=== PATIENT | male | born 1970 | race Two or more races ===

== ENCOUNTER 2024-03-24 08:10 | Outpatient (AMB) | payer OTHER, SELFPAY ==
--- NOTE | 2024-03-24 08:20 | MHC.OFFVIS ---
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 Patient reports while at work he was fixing a bed, while under the bed the railing fell off hitting his arm. He had instant pain, and had applied ice. He presented to [facility] in [place] the following day due to his pain. He was referred to orthopedics. Currently he has constant pain around his elbow. Intermittent numbness and tingling in his hand. He has difficulty with lifting heavy objects, stating it causes pain in his elbow. He continues to work with light duty restrictions. 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 He reports he was at work fixing a bed when the railing fell off while he was under the bed and injured his arm. He experienced instant pain and had applied ice after which he was seen at [facility] at [place] the following day where he was referred to our office. He currently states he has no improvement and experiences a constant pain around his elbow as well as intermittent numbness and tingling that radiates down to his hand. His pain is aggravated with lifting heavy objects. He continues to work with light duty restrictions. 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 Review of Systems Const All systems reviewed & are unremarkable except as noted in HPI and below Physical Exam Vital Signs: BMI result Body Mass Index 29.6 Const General: cooperative, healthy appearing, comfortable, no acute distress, well developed and alert Orientation/consciousness: patient oriented x3 HEENT Head: Yes normal to inspection, Yes normocephalic and Yes atraumatic Eyes General: appearance normal, both eyes and all related structures Resp Effort & Inspection: normal respiratory effort and able to speak in complete sentences Cardio Rate: regular rate Peripheral pulses: Peripheral pulses 2+ throughout GI Palpation (GI): Soft to palpation Skin Lesions: no lesions Rashes: no rashes Neuro General: patient oriented x3 Extrem Other: Right elbow: Skin intact. No erythema or swelling. ROM full without pain. Tenderness over the lateral epicondyle and pain with resisted wrist extension. NVI. Assessment & Plan Assessment & Plan (1) Right elbow tendonitis: Code(s): M77.8 - Other enthesopathies, not elsewhere classified Category: Medical (2) Contusion of right elbow: Code(s): S50.01XA - Contusion of right elbow, initial encounter Category: Medical Plan A referral to occupational therapy has been ordered to work on stretching and strengthening exercises. An MRI of the right elbow was ordered to further evaluate the extent of his injury. He will continue with his current work restrictions of avoiding any type of lifting, pushing, pulling, or carrying greater than 10 pounds. He was given an arm band brace today and he will see me back once the MRI is complete. Orders: Orders OT Evaluation and Treatment Today M77.8 - Other enthesopathies, not elsewhere classified, S50.01XA - Contusion of right elbow, initial encounter MR elbow RT wo con Today M77.8 - Other enthesopathies, not elsewhere classified, S50.01XA - Contusion of right elbow, initial encounter Patient Instructions: Scribed for Manohar Hall PA-C, by Dexter Bland medical scientist, on 03/24/2024 at 8:30 AM EST.? I, Manohar Hall PA-C, have personally reviewed and agree with the information entered by the scribe. Coding Level of Care Code New Pt Level 3 (68370) Complex EM visit Add On G2211 Diagnoses Right elbow tendonitis M77.8 Contusion of right elbow S50.01XA
[2024-03-24 08:27] VITALS: BMI 29.6
== END 2024-03-24 09:24 | disposition home or self-care (01) ==
PROVIDERS: Visit Provider Physician Assistant
DX: M77.8 Other enthesopathies, not elsewhere classified (principal); S50.01XA Contusion of right elbow, initial encounter
CPT/HCPCS: 99203; G2211

== ENCOUNTER → 2024-03-24 08:10 | Outpatient (BNVA) | payer OTHER, SELFPAY | PROVIDERS: Visit Provider Physician Assistant | DX: S50.01XA Contusion of right elbow, initial encounter (principal); M77.8 Other enthesopathies, not elsewhere classified | CPT/HCPCS: 99202 ==

== ENCOUNTER 2024-04-11 18:37 | Outpatient (REF) | payer OTHER, SELFPAY ==
--- NOTE | ~2024-04-11 | MR_ITS ---
EXAMINATION: MR ELBOW WITHOUT CONTRAST, RIGHT CLINICAL INFORMATION: Right elbow contusion. Persistent pain following injury on 02/16/2024. COMPARISON: None available. TECHNIQUE: MRI of the elbow was performed using routine sequences on a high-field scanner. FINDINGS: Ulnar collateral ligament: Intact. Common flexor tendon: Minimal common flexor tendinosis. No tear. Radial collateral ligament: Intact. Common extensor tendon: Mild common extensor tendinosis with proximal intrasubstance partial tearing measuring up to 0.5 cm in craniocaudal dimension. No full-thickness transverse and anterior tendon retraction. Biceps/triceps tendon: Minimal distal biceps tendinosis. Intact brachialis and triceps tendons. Articular cartilage/bone: No acute fracture or dislocation. No marrow edema or evidence of acute osseous injury. Intact articular cartilage. No osteochondral lesion. Ulnar nerve: Intact. Joint fluid/soft tissues: Mild dorsal subcutaneous edema without organized fluid collection or hematoma formation. Findings could indicate soft tissue contusion. No significant joint effusion. No soft tissue mass. MR/MR elbow RT wo con IMPRESSION: 1. Mild common extensor tendinosis with proximal intrasubstance partial tearing measuring 0.5 cm in craniocaudal dimension. No full-thickness transverse tendon tear or tendon retraction. 2. Minimal common flexor tendinosis. 3. Minimal distal biceps tendinosis. 4. Mild dorsal subcutaneous edema without organized fluid collection or hematoma formation. Findings could indicate soft tissue contusion. 5. No acute osseous injury. No osteochondral lesion. Electronically signed by: Nigel Izaguirre MD 04/24/2024 01:17 PM [facility]
== END 2024-04-11 18:38 | disposition home or self-care (01) ==
LOC: HO.MRI 18:37
PROVIDERS: Visit Provider Physician Assistant
DX: S50.01XA Contusion of right elbow, initial encounter (principal); M77.8 Other enthesopathies, not elsewhere classified
CPT/HCPCS: 73221

== ENCOUNTER 2024-05-01 11:21 | Outpatient (AMB) | payer OTHER, SELFPAY ==
--- NOTE | 2024-05-01 11:22 | MHC.OFFVIS ---
Intake Visit Reasons: Tel-Right elbow tendonitis MRI review Intake Note: Luciano is a 53 year old male, scheduled for a telephone visit for an MRI review of right elbow s/p WC injury, DOI 02/15/24. Patient reports his pain is a 6/10 today. He notices that PT is helping him a little bit. Allergies No Known Allergies Allergy (Verified 05/01/24 11:23) HPI HPI Tel-Right elbow tendonitis MRI review: Details: 53 yo male presents for telehealth MRI f/u right elbow . He states he has done 6 OT sessions and has some improvement but continues to have some pain and weakness. 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 Mild common extensor tendinosis with proximal intrasubstance partial tearing measuring 0.5 cm in craniocaudal dimension. No full-thickness transverse tendon tear or tendon retraction. 2. Minimal common flexor tendinosis. 3. Minimal distal biceps tendinosis. 4. Mild dorsal subcutaneous edema without organized fluid collection or hematoma formation. Findings could indicate soft tissue contusion. 5. No acute osseous injury. No osteochondral lesion. Assessment & Plan Assessment & Plan (1) Right elbow tendonitis: Code(s): M77.8 - Other enthesopathies, not elsewhere classified Category: Medical Plan: We discussed MRI of the right elbow at length. I recommend continued OT to work on rom, strength and stretching. He should continue to limit activities with lifting or repetitive motion. He will continue working with current limitations. He will see me back in 6 weeks sooner if needed. Coding Level of Care Code Tele Est Pt Level 3 (62940) Diagnoses Right elbow tendonitis M77.8
== END 2024-05-01 11:31 | disposition home or self-care (01) ==
LOC: HO.HOS 11:21
PROVIDERS: Visit Provider Physician Assistant
DX: M77.8 Other enthesopathies, not elsewhere classified (principal)
CPT/HCPCS: 99213

== ENCOUNTER 2024-05-08 08:50 | Outpatient (RCR) | payer OTHER, SELFPAY ==
--- NOTE | 2024-04-15 08:27 | MHC.OT.OEV ---
[address] [phone] F: [phone] Occupational Therapy Evaluation Patient Name: Luciano Green Diagnosis: (R)elbow Date of Onset: 02/15/24 Date of Surgery: Attending Provider: Manohar Hall Prescribed Treatment: Follow Up Appointment: History of Current Condition: Patient is a 53 year old male who was referred to skilled OT with report of pain at the (R)elbow from a work injury on 02/15/2024. 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 He went to Urgent Care and referred to orthopedics. He denies numbness/ tingling and reports pain as 8/10 during movement, 7/10 with elbow extension and 0/10 elbow flexion. He reported PLOF as (I)ADLs/IADLs. 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 Currently he is on light duty, he states pushing, pulling and lifting heavy items is difficult. He also states the pain makes it difficult for him to sleep. 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 and children provide support Current Level of Function and Occupation Self Care, Employment, Leisure: is on light duty min (A)IADLs Sleep: Difficulty sleeping due to pain Driving: Functional Vision: Balance: Pain Assessment Pain Score: 8 Pain Scale Used: Numeric (0 - 10) Pain Location and Description: 8/10 during movement- sharp pain 7/10 elbow extension, 0/10 elbow flexion Aggravating Factors: pulling, lifting, items, pushing beds. Alleviating Factors: taking ibuprofen Skin and Soft Tissue Assessment Skin and Soft Tissue: Comments: Skin intact- no bruising, mild edema present Nerve assessment Ulnar Nerve: Median Nerve: Radial Nerve: Comments: Sensory Assessment Temperature: Light Touch: Proprioception: Vibration: Comments: Edema Assessment Upper Extremity: Right Impaired Lower Extremity: Comments: edema around the elbow Dexterity Assessment Dexterity: Right Impaired Comments: Functional Dexterity Test 39.09 seconds= impaired Special Tests Comments: Cozen's Test (+) Mill's Test (+) AROM(PROM) Strength Cervical Cervical Flexion: Cervical Extension: Cervical Lateral Flexion: Cervical Rotation: Comments: Shoulder Flexion: Extension: Abduction: Internal Rotation: External Rotation: Comments: WFL Flexion: Extension: Abduction: Internal Rotation: External Rotation: Comments: WFL Elbow Flexion: Extension: Pronation: Supination: Comments: WFL Flexion: Extension: Pronation: Supination: Comments: (R)3+/5 extensors Wrist Flexion: (R) 87* Extension: (R) 70* Ulnar Deviation: (R) 13* Radial Deviation: (R) 26* Comments: Flexion: Extension: Ulnar Deviation: Radial Deviation: Comments: WFL Thumb Thumb CMC Flexion: Thumb MCP Flexion: Thumb IP Flexion: Radial Abduction: Palmar Abduction: [place] ([place] 0-10): Comments: WFL Digits Index MCP: PIP: DIP: Long MCP: PIP: DIP: Ring MCP: PIP: DIP: Small MCP: PIP: DIP: Comments: WFL Gross Grasp: (R)50lbs., (L)90lbs. Lateral Pinch: 16* Two-Point Pinch: 9* Three-Jaw Monty: 6* Comments: Patient Education Primary Language: Caustic Room Attendant Required: No Current Knowledge: Teaching Method: Education Needs Identified on Evaluation: How did patient/family demonstrate learning? Barriers to Learning: Readiness for Learning: Who was educated? 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 Provocative Testing revealed positive Cozen's and Mill's testing indicating lateral epicondylitis. Quick DASH score= 63.6 indicating patient's perceived impairment of the (R)UE during self care tasks. Due to the documented impairments it is recommended that patient receive skilled OT intervention in order for patient to achieve his PLOF of (I) during self care tasks and to return to work with no limitations. 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 LTG Duration: 4 weeks Care Home Goals: Patient will report 0/10 pain during self care tasks Patient will be (I) with HEP Patient will had full AROM of (R) wrist Patient will have decrease Quick DASH score by at least 20% indicating over UE improvement during self care tasks Frequency and Duration: The patient will be seen 2x a week for 4 weeks Treatment Plan: Therapeutic Exercise Therapeutic Activity Home Exercise Program Splinting Patient Education Edema Control ADL Training Ultrasound Iontophoresis Paraffin Fluidotherapy MHP Cold Packs Joint Mobilization Soft Tissue Mobilization Kinesiotaping Other (see comments) Skilled OT eval and treat Electronically Signed By: MARK Rodriguez/Sedrick, CLT Reviewed/agree with student documentation: Therapist: Please sign and return to therapist, Thank you for your referral.
--- NOTE | 2024-05-15 09:38 | MHC.OT.DC ---
[address] [phone] F: [phone] Occupational Therapy Discharge Note Patient Name: Luciano Green Provider: Manohar Hall Diagnosis: (R)elbow Date of Surgery: Date of Evaluation: 04/14/24 Date of Discharge: Treatments to Date: 4 Cancellations to Date: No Shows to Date: Discharge Status: Visit Non-compliance Discharge Summary: Pt is being d/charged due to visit non-compliance Electronically Signed By: Karena Titus OTR/L Reviewed/agree with student documentation: Therapist: Yumiko Haider OTR/Sedrick, CLT Please Sign and return to therapist, thank you for your referral.
--- NOTE | 2024-05-15 09:38 | MHC.OT.DC ---
[address] [phone] F: [phone] Occupational Therapy Discharge Note Patient Name: Luciano Green Provider: Manohar Hall Diagnosis: (R)elbow Date of Surgery: Date of Evaluation: 04/14/24 Date of Discharge: Treatments to Date: 4 Cancellations to Date: No Shows to Date: Discharge Status: Visit Non-compliance Discharge Summary: Pt is being d/charged due to visit non-compliance Electronically Signed By: Karena Titus OTR/L Reviewed/agree with student documentation: Therapist: Yumiko Haider OTR/Sedrick, CLT Please Sign and return to therapist, thank you for your referral.
== END 2024-05-15 09:41 | disposition home or self-care (01) ==
LOC: HO.OT 08:50
PROVIDERS: Visit Provider Physician Assistant
DX: M77.8 Other enthesopathies, not elsewhere classified (principal); S50.01XA Contusion of right elbow, initial encounter
CPT/HCPCS: 97110; 97140; 97165